=== PATIENT | female | born 1960 | race Caucasian/White ===

== ENCOUNTER 2022-08-21 09:46 | Day surgery (SDC) | payer OTHER ==
[~2022-08-21 09:46] MED LIST: ATOR40TA PO
== END 2022-08-21 23:29 | disposition home or self-care (01) ==
LOC: MOI US 09:46
DX: C50.411 Malignant neoplasm of upper-outer quadrant of right female breast (principal); N63.10 Unspecified lump in the right breast, unspecified quadrant
CPT/HCPCS: 19285; 77065; A4648; G0279

== ENCOUNTER 2022-08-24 08:16 | Day surgery (SDC) | payer OTHER ==
[~2022-08-24] VITALS: Ht 167.6 cm; Wt 80.0 kg
--- NOTE | 2022-08-24 09:39 | NUR ---
Ambulatory in Day Surgery. History, Chart, Medications and Allergies reviewed before start of procedure.Lungs clear T/O to Auscultation. Patient confirms NPO status and agrees with scheduled surgery. Pre-Op teaching done. Pt verbalizes understanding. Patient States Post-Procedure ride home has been arranged.
--- NOTE | 2022-08-24 09:45 | NUR ---
PT REQUESTING TO LEAVE DENTURES IN WHICH WAS OK PER ANESTHESIA. PT DENIES ANY S/SX OF COVID.
--- NOTE | 2022-08-24 12:48 | NUR ---
STERI STRIP C/D/I WITH GAUZE, BREAST BINDER ON, Discharge instructions reviewed with patient. Patient verbalizes understanding. Copy given to patient to take home. NORCO GIVEN PER ORDER. PT TOLERATED WATER AND CRACKERS WELL. Discharged via wheelchair to private car for ride home.
== END 2022-08-24 12:45 | disposition home or self-care (01) ==
LOC: ORSCMMR 08:16 → NM 08:16 → ORSCMMR 08:20 → NM 09:00
PROVIDERS: Surgery
PROC: 0HBT0ZZ Excision of Right Breast, Open Approach (ICD-10-PCS; principal; 2022-08-24 10:00)
PROC: 07B50ZX Excision of Right Axillary Lymphatic, Open Approach, Diagnostic (ICD-10-PCS; principal; 2022-08-24 10:00)
DX: C50.411 Malignant neoplasm of upper-outer quadrant of right female breast (principal); Z17.0 Estrogen receptor positive status [ER+]; E78.00 Pure hypercholesterolemia, unspecified; Z80.3 Family history of malignant neoplasm of breast; Z79.899 Other long term (current) drug therapy; Z87.891 Personal history of nicotine dependence
CPT/HCPCS: 38792; 76098; 88307; 88342; A9270; A9520; J0690; J1100; J1885; J2250; J2405; J2704; J2795; J3010; J7120; Q9968

== ENCOUNTER → 2025-05-22 | Outpatient (CLI) | payer OTHER | END | disposition home or self-care (01) | LOC: LAB 18:31 → LAB SHORT 18:31 | DX: R35.0 Frequency of micturition (principal) | CPT/HCPCS: 87077; 87086; 87186 ==